=== PATIENT | male | born 1980 | race Caucasian/White ===

== ENCOUNTER 2021-04-20 18:39 | Emergency (ER) | payer BC, OTHER ==
[2021-04-20] MEDS ORDERED: Dexamethasone 10 MG/ML VIAL ONE (21:00)
[2021-04-20] MEDS ORDERED: Acetaminophen/Codeine 30-300mg Tablet ONE (21:00)
[2021-04-20] MEDS ORDERED: Diazepam 5 MG TAB ONE (21:00)
[2021-04-20] MEDS ORDERED: Cyclobenzaprine 10 MG TAB ONE (22:16)
[2021-04-21] MEDS ORDERED: Ketorolac Tromethamine 30 MG/ML VIAL ONE (00:16)
== END 2021-04-21 01:26 | disposition home or self-care (01) ==
LOC: ERS 18:39
DX: M54.5 Low back pain (principal); I10 Essential (primary) hypertension; E78.5 Hyperlipidemia, unspecified
CPT/HCPCS: 96372; 99283; J1100; J1885

== ENCOUNTER 2021-05-01 13:24 | Outpatient (CLI) | payer OTHER | END 2021-05-01 13:25 | disposition home or self-care (01) | LOC: TBSIIMAG 13:24 | PROVIDERS: ATTEND Neurological Surgery | DX: M54.16 Radiculopathy, lumbar region (principal); M48.061 Spinal stenosis, lumbar region without neurogenic claudication; M48.07 Spinal stenosis, lumbosacral region; Q05.7 Lumbar spina bifida without hydrocephalus | CPT/HCPCS: 72148 ==